=== PATIENT | male | born 1975 | race Caucasian/White ===

== ENCOUNTER 2020-11-13 19:02 | Emergency (ER) | payer OTHER ==
[2020-11-13] MEDS ORDERED: Diphtheria,Pertussis(Acell),Tetanus Vaccine 0.5 ML Syringe IM ONE (19:55)
[2020-11-13] MEDS ORDERED: Lidocaine 1% 30 ML SDV INJECT ONE (19:55)
--- NOTE | 2020-11-13 19:57 | EDM.PDOC ---
ED HPI GENERAL MEDICAL PROBLEM - General Chief Complaint: Laceration Stated Complaint: RIGHT HAND CUTT BLEEDING Time Seen by Provider: 11/13/20 19:54 Source of Information: Reports: Patient History Limitations: Reports: No Limitations - History of Present Illness INITIAL COMMENTS - FREE TEXT/NARRATIVE: Patient comes emergency department today from home with complaints of a lace ration on his right hand. This patient [place] when he got his hand close to a very sharp blade. He glanced his hand along the blade and got a laceration on the MCP joint of the right second finger. This happened just prior to arrival. He is unsure of when his last tetanus shot was. He denies any change in the function of his right second finger. No paresthesias. No other injury. Right Finger-Index Pain Score (Numeric/FACES): 6 - Related Data Allergies Allergy/AdvReac Type Severity Reaction Status Date / Time No Known Allergies Allergy Verified 11/13/20 19:52 Home Meds: Home Meds . [No Known Home Meds] 11/13/20 [History] Social & Family History - Tobacco Use Tobacco Use Status *Q: Current Every Day Tobacco User Years of Tobacco use: 20 Packs/Tins Daily: 0.5 - Caffeine Use Caffeine Use: Reports: Coffee - Recreational Drug Use Recreational Drug Use: No ED ROS GENERAL - Review of Systems Review Of Systems: Comprehensive ROS is negative, except as noted in HPI. ED EXAM, SKIN/RASH Exam: See Below Exam Limited By: No Limitations General Appearance: Alert, WD/WN, No Apparent Distress Respiratory/Chest: No Respiratory Distress Cardiovascular: Normal Peripheral Pulses Peripheral Pulses: 2+: Radial (L), Radial (R) Extremities: No: Normal Inspection (The right dorsal aspect of the MCP joint of the second finger there is a 3 cm subcutaneous distal to proximal laceration right over the MCP joint. There is a 1.5 cm superficial abrasion extending distally. He is able to flex and extend appropriately at the DIP PIP and MCP joint.Rest hand negative) Neurological: Alert, Oriented Psychiatric: Normal Affect, Normal Mood Skin: Warm, Dry, Intact, Normal Color, No Rash ED SKIN PROCEDURES - Laceration/Wound Repair Right Digit - 2nd (Index) Appearance: Subcutaneous, Linear Distal NVT: Neuro & Vascular Intact, No Tendon Injury Anesthetic Type: Local Local Anesthesia - Lidocaine (Xylocaine): 1% Plain Local Anesthetic Volume: 5cc Skin Prep: Chlorhexidine (Hibiciens), Saline Saline Irrigation (cc's): 100 Exploration/Debridement/Repair: Wound Explored, In a Bloodless Field, Explored to Base, No Foreign Material Found Closed with: Sutures Lac/Wound length In cm: 2.5 Suture Size: 4-0 Suture Type: Nylon, Interrupted Sterile Dressing Applied: Nurse Tetanus Status Addressed: Yes Course - Vital Signs Last Recorded V/S: Last Vital Signs Temp 97.3 F 11/13/20 19:51 Pulse 80 11/13/20 19:51 Resp 18 11/13/20 19:51 BP 137/98 H 11/13/20 19:51 Pulse Ox 98 11/13/20 19:51 - Orders/Labs/Meds Orders: Active Orders 24 hr Category Date Time Status Vaccine to be Administered/Admin Charge [RC] ASDIRECTED Care 11/13/20 19:55 Active Meds: Medications Discontinued Medications Generic Name Dose Route Start Last Admin Trade Name Freq PRN Reason Stop Dose Admin Diphtheria/Tetanus/Acell Pertussis 0.5 ml 11/13/20 19:55 Diphtheria,Pertussis(Acell),Tetanus Vaccine 0.5 Ml Syringe IM 11/13/20 19:56 .ONCE ONE Lidocaine HCl 30 ml 11/13/20 19:55 Lidocaine 1% 30 Ml Sdv INJECT 11/13/20 19:56 ONETIME ONE - Re-Assessments/Exams Free Text/Narrative Re-Assessment/Exam: 11/13/20 20:21 Tetanus updated. See procedure note for laceration repair. Abrasion left heel secondary intention Departure - Departure Time of Disposition: 20:19 Disposition: Home, Self-Care 01 Clinical Impression: Laceration of hand Qualifiers: Encounter type: initial encounter Foreign body presence: without foreign body Laterality: right Qualified Code(s): S61.411A - Laceration without foreign body of right hand, initial encounter Abrasion, hand with infection Qualifiers: Encounter type: initial encounter Laterality: right Qualified Code(s): S60.511A - Abrasion of right hand, initial encounter; L08.9 - Local infection of the skin and subcutaneous tissue, unspecified - Discharge Information Instructions: Laceration Care, Adult, [id number], Pain Medicine Instructions, [id number] Forms: ED Department Discharge Additional Instructions: Cleanse wound twice daily with soap and water. Bacitracin bandage until healed. Running water over the laceration is fine. No soaking hand in water such as dishes [place] tub[place] pools etc. Watch for signs of infection. Sutures out in 10 days. Return to the emergency department new or worsening symptoms. Follow-up primary care provider in the next 10 days for suture removal sooner if any concerns Sepsis Event Note (ED) - Evaluation Sepsis Screening Result: No Definite Risk - Focused Exam Vital Signs: Vital Signs Temp Pulse Resp BP Pulse Ox 11/13/20 19:51 97.3 F 80 18 137/98 H 98 - My Orders Last 24 Hours: My Active Orders 11/13/20 19:55 Vaccine to be Administered/Admin Charge [RC] ASDIRECTED - Assessment/Plan Last 24 Hours: My Active Orders 11/13/20 19:55 Vaccine to be Administered/Admin Charge [RC] ASDIRECTED
[2020-11-13] MEDS ORDERED: Bacitracin Oint 1 GM U/D Packet TOP ONE (20:18)
== END 2020-11-13 20:41 | disposition home or self-care (01) ==
LOC: DL.ED 19:02
DX: S61.210A Laceration without foreign body of right index finger without damage to nail, initial encounter (principal); S60.511A Abrasion of right hand, initial encounter; L08.9 Local infection of the skin and subcutaneous tissue, unspecified; Z72.0 Tobacco use; Z23 Encounter for immunization; W26.8XXA Contact with other sharp object(s), not elsewhere classified, initial encounter
CPT/HCPCS: 12001; 90471; 90715; 99282-25